=== PATIENT | male | born 1970 | race African-American/Black ===

== ENCOUNTER 2018-07-18 06:23 | Emergency (ER) | payer BC, OTHER ==
[2018-07-18] MEDS ORDERED: Morphine 10 MG/ML VIAL ONE (06:42)
[2018-07-18] MEDS ORDERED: Labetalol HCl 100 MG/20 ML VIAL ONE (06:42)
[2018-07-18] MEDS ORDERED: Ketorolac Tromethamine 30 MG/ML VIAL ONE (07:34)
[2018-07-18] MEDS ORDERED: Lisinopril 10 MG TAB ONE ×2 (07:34→08:27)
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
== END 2018-07-18 08:40 | disposition home or self-care (01) ==
LOC: MADERS 06:23
DX: S39.012A Strain of muscle, fascia and tendon of lower back, initial encounter (principal); I10 Essential (primary) hypertension; V49.9XXA Car occupant (driver) (passenger) injured in unspecified traffic accident, initial encounter
CPT/HCPCS: 70450; 72125; 72128; 72131; 96374; 96375; G0390; J1885; J2270